=== PATIENT | male | born 1970 | race Caucasian/White ===

== ENCOUNTER → 2016-05-29 | Outpatient (CLI) | payer OTHER ==
[~2016-05-29] MED LIST: FENTANYL PF 100 MCG/2ML ONE; FLUMAZENIL 0.1 MG/1 ML, 5ML ONE; GADOBUTROL 10 MMOL/10 ML PFS ONE; MIDAZOLAM 1 MG/ML, 5ML ONE; NALOXONE 1 MG/ML, 2ML ONE
== END | disposition home or self-care (01) ==
LOC: RAD 11:50
PROVIDERS: ATTEND Family Medicine
DX: R22.0 Localized swelling, mass and lump, head (principal)
CPT/HCPCS: 70553; A9585; J2250; J3010; 99156; J2310

== ENCOUNTER → 2016-06-19 | Outpatient (CLI) | payer OTHER | END | disposition home or self-care (01) | LOC: PETCFH 10:52 | PROVIDERS: ATTEND Internal Medicine Hematology & Oncology | DX: R22.0 Localized swelling, mass and lump, head (principal) | CPT/HCPCS: 78306; A9503 ==

== ENCOUNTER → 2016-06-29 | Outpatient (CLI) | payer OTHER ==
[~2016-06-29] MED LIST changes: -FENTANYL PF 100 MCG/2ML ONE; -FLUMAZENIL 0.1 MG/1 ML, 5ML ONE; -GADOBUTROL 10 MMOL/10 ML PFS ONE; -MIDAZOLAM 1 MG/ML, 5ML ONE; -NALOXONE 1 MG/ML, 2ML ONE; +OMNIPAQUE 350 MG/ML, 100ML BOTTLE ONE
== END | disposition home or self-care (01) ==
LOC: CFH 13:04
PROVIDERS: ATTEND Internal Medicine Hematology & Oncology
DX: R22.0 Localized swelling, mass and lump, head (principal); K76.0 Fatty (change of) liver, not elsewhere classified; K76.9 Liver disease, unspecified
CPT/HCPCS: 71260; 74177; Q9967

== ENCOUNTER → 2016-10-05 | Outpatient (CLI) | payer OTHER ==
[~2016-10-05] MED LIST changes: +FENTANYL PF 100 MCG/2ML ONE; +GADOBUTROL 7.5 MMOL/7.5 ML PFS ONE; +MIDAZOLAM 1 MG/ML, 5ML ONE
== END | disposition home or self-care (01) ==
LOC: RAD 10:40
PROVIDERS: ATTEND Internal Medicine Hematology & Oncology
DX: K76.0 Fatty (change of) liver, not elsewhere classified (principal); K76.89 Other specified diseases of liver; E11.9 Type 2 diabetes mellitus without complications; R22.0 Localized swelling, mass and lump, head; T50.8X1A Poisoning by diagnostic agents, accidental (unintentional), initial encounter; R47.81 Slurred speech; C64.9 Malignant neoplasm of unspecified kidney, except renal pelvis; C77.9 Secondary and unspecified malignant neoplasm of lymph node, unspecified; Z90.5 Acquired absence of kidney
CPT/HCPCS: 36415; 70553; 71260; 74177; 82565; 99156; 99157; A9585; J2250; J3010; Q9967

== ENCOUNTER → 2017-01-08 | Outpatient (CLI) | payer OTHER | END | disposition home or self-care (01) | LOC: PETCFH 07:05 | PROVIDERS: ATTEND Internal Medicine Hematology & Oncology | DX: C64.9 Malignant neoplasm of unspecified kidney, except renal pelvis (principal); C79.51 Secondary malignant neoplasm of bone; R22.0 Localized swelling, mass and lump, head; Z98.890 Other specified postprocedural states; Z90.5 Acquired absence of kidney | CPT/HCPCS: 78306; A9503 ==

== ENCOUNTER → 2017-01-11 | Outpatient (CLI) | payer OTHER ==
[~2017-01-11] MED LIST changes: +FLUMAZENIL 0.1 MG/1 ML, 5ML ONE; +GADOBUTROL 10 MMOL/10 ML PFS ONE; -GADOBUTROL 7.5 MMOL/7.5 ML PFS ONE; +NALOXONE 1 MG/ML, 2ML ONE
== END ==
LOC: RAD 08:19
PROVIDERS: ATTEND Internal Medicine Hematology & Oncology
DX: R22.0 Localized swelling, mass and lump, head (principal); Z90.5 Acquired absence of kidney; K76.9 Liver disease, unspecified
CPT/HCPCS: 70553; 71260; 74177; 99156; 99157; A9585; J2250; J3010; Q9967; J2310

== ENCOUNTER → 2017-04-23 | Outpatient (CLI) | payer OTHER ==
[~2017-04-23] MED LIST changes: -FENTANYL PF 100 MCG/2ML ONE; -FLUMAZENIL 0.1 MG/1 ML, 5ML ONE; -GADOBUTROL 10 MMOL/10 ML PFS ONE; -MIDAZOLAM 1 MG/ML, 5ML ONE; -NALOXONE 1 MG/ML, 2ML ONE
== END ==
LOC: RAD 12:27
PROVIDERS: ATTEND Internal Medicine Hematology & Oncology
DX: C64.9 Malignant neoplasm of unspecified kidney, except renal pelvis (principal); R22.0 Localized swelling, mass and lump, head
CPT/HCPCS: 71260; 74177; Q9967

== ENCOUNTER → 2017-04-26 | Outpatient (CLI) | payer OTHER ==
[~2017-04-26] MED LIST changes: +FENTANYL PF 100 MCG/2ML ONE; +FLUMAZENIL 0.1 MG/1 ML, 5ML ONE; +GADOBUTROL 10 MMOL/10 ML PFS ONE; +MIDAZOLAM 1 MG/ML, 2ML ONE; +NALOXONE 1 MG/ML, 2ML ONE; -OMNIPAQUE 350 MG/ML, 100ML BOTTLE ONE
== END | disposition home or self-care (01) ==
LOC: RAD 11:56
PROVIDERS: ATTEND Internal Medicine Hematology & Oncology
DX: R22.0 Localized swelling, mass and lump, head (principal); C64.9 Malignant neoplasm of unspecified kidney, except renal pelvis
CPT/HCPCS: 70553; 99156; 99157; A9585; J2250; J3010; J2310

== ENCOUNTER → 2017-08-16 | Outpatient (CLI) | payer OTHER ==
[~2017-08-16] MED LIST changes: -FLUMAZENIL 0.1 MG/1 ML, 5ML ONE; -MIDAZOLAM 1 MG/ML, 2ML ONE; +MIDAZOLAM 1 MG/ML, 5ML ONE; -NALOXONE 1 MG/ML, 2ML ONE
== END | disposition home or self-care (01) ==
LOC: RAD 07:45
PROVIDERS: ATTEND Internal Medicine Hematology & Oncology
DX: R22.0 Localized swelling, mass and lump, head (principal)
CPT/HCPCS: 70553; 99156; 99157; A9585; J2250; J3010

== ENCOUNTER → 2017-10-04 | Outpatient (CLI) | payer OTHER ==
[~2017-10-04] MED LIST changes: +FLUMAZENIL 0.1 MG/1 ML, 5ML ONE; -GADOBUTROL 10 MMOL/10 ML PFS ONE; +GADOBUTROL 10 MMOL/10 ML VIAL ONE; +NALOXONE 1 MG/ML, 2ML ONE
== END | disposition home or self-care (01) ==
LOC: RAD 11:41
PROVIDERS: ATTEND Orthopaedic Surgery
DX: R22.31 Localized swelling, mass and lump, right upper limb (principal); G56.31 Lesion of radial nerve, right upper limb
CPT/HCPCS: 73223; 99156; 99157; A9585; J2250; J3010; J2310

== ENCOUNTER → 2017-10-05 | Outpatient (CLI) | payer OTHER ==
[~2017-10-05] MED LIST changes: -FLUMAZENIL 0.1 MG/1 ML, 5ML ONE; -GADOBUTROL 10 MMOL/10 ML VIAL ONE; -NALOXONE 1 MG/ML, 2ML ONE
== END | disposition home or self-care (01) ==
LOC: RAD 12:39
PROVIDERS: ATTEND Orthopaedic Surgery
DX: Z02.9 Encounter for administrative examinations, unspecified (principal)
CPT/HCPCS: J2250; J3010

== ENCOUNTER → 2017-11-19 | Outpatient (CLI) | payer OTHER | END | disposition home or self-care (01) | LOC: RAD 08:52 | PROVIDERS: ATTEND Internal Medicine Hematology & Oncology | DX: E04.1 Nontoxic single thyroid nodule (principal); M89.9 Disorder of bone, unspecified | CPT/HCPCS: 76536 ==

== ENCOUNTER → 2017-12-06 | Outpatient (CLI) | payer OTHER | END | disposition home or self-care (01) | LOC: RAD 13:37 | PROVIDERS: ATTEND Radiology Radiation Oncology | DX: Z02.9 Encounter for administrative examinations, unspecified (principal) ==

== ENCOUNTER → 2017-12-10 | Outpatient (CLI) | payer OTHER ==
[~2017-12-10] MED LIST changes: +FLUMAZENIL 0.1 MG/1 ML, 5ML ONE; +GADOBUTROL 7.5 MMOL/7.5 ML PFS ONE; +NALOXONE 1 MG/ML, 2ML ONE
== END | disposition home or self-care (01) ==
LOC: RAD 11:23
PROVIDERS: ATTEND Internal Medicine Hematology & Oncology
DX: M89.8X8 Other specified disorders of bone, other site (principal); M25.469 Effusion, unspecified knee
CPT/HCPCS: 70491; 70553; 73720; 73723; 99156; 99157; A9585; J2250; J3010; J2310

== ENCOUNTER → 2017-12-30 | Outpatient (CLI) | payer OTHER ==
[~2017-12-30] MED LIST changes: -FLUMAZENIL 0.1 MG/1 ML, 5ML ONE; +GADOBUTROL 10 MMOL/10 ML PFS ONE; -GADOBUTROL 7.5 MMOL/7.5 ML PFS ONE; -NALOXONE 1 MG/ML, 2ML ONE
== END | disposition home or self-care (01) ==
LOC: RAD 08:57
PROVIDERS: ATTEND Radiology Radiation Oncology
DX: C79.51 Secondary malignant neoplasm of bone (principal)
CPT/HCPCS: 73720; 99156; 99157; A9585; J2250; J3010

== ENCOUNTER → 2018-03-23 | Outpatient (CLI) | payer OTHER | END | disposition home or self-care (01) | LOC: PETCFH 07:32 | PROVIDERS: ATTEND Internal Medicine Hematology & Oncology | DX: C64.1 Malignant neoplasm of right kidney, except renal pelvis (principal); R22.0 Localized swelling, mass and lump, head | CPT/HCPCS: 78815; A9552 ==

== ENCOUNTER 2018-05-25 07:57 | Outpatient (CLI) | payer OTHER ==
[2018-05-25] MEDS ORDERED: MIDAZOLAM 1 MG/ML, 5ML ONE (08:36)
[2018-05-25] MEDS ORDERED: FENTANYL PF 100 MCG/2ML ONE (08:36)
[2018-05-25] MEDS ORDERED: GADOBUTROL 7.5 MMOL/7.5 ML PFS ONE (12:40)
== END 2018-05-25 23:59 | disposition home or self-care (01) ==
LOC: RAD 07:57
PROVIDERS: ATTEND Internal Medicine Hematology & Oncology
DX: C64.1 Malignant neoplasm of right kidney, except renal pelvis (principal); R22.0 Localized swelling, mass and lump, head
CPT/HCPCS: 70553; 99156; 99157; A9585; J2250; J3010

== ENCOUNTER → 2018-05-26 | Outpatient (CLI) | payer OTHER ==
[~2018-05-26] MED LIST changes: -FENTANYL PF 100 MCG/2ML ONE; -GADOBUTROL 10 MMOL/10 ML PFS ONE; -MIDAZOLAM 1 MG/ML, 5ML ONE; +OMNIPAQUE 350 MG/ML, 100ML BOTTLE ONE
== END | disposition home or self-care (01) ==
LOC: CFH 08:07
PROVIDERS: ATTEND Internal Medicine Hematology & Oncology
DX: N28.1 Cyst of kidney, acquired (principal); R22.0 Localized swelling, mass and lump, head; Z90.5 Acquired absence of kidney
CPT/HCPCS: 71260; 74177; Q9967

== ENCOUNTER 2018-09-14 10:23 | Outpatient (CLI) | payer OTHER | END 2018-09-14 23:59 | disposition home or self-care (01) | LOC: PETCFH 10:23 | PROVIDERS: ATTEND Internal Medicine Hematology & Oncology | DX: C64.1 Malignant neoplasm of right kidney, except renal pelvis (principal); R22.0 Localized swelling, mass and lump, head | CPT/HCPCS: 78306; A9503 ==

== ENCOUNTER → 2019-03-13 | Outpatient (CLI) | payer OTHER | END | disposition home or self-care (01) | LOC: RAD 10:53 | PROVIDERS: ATTEND Internal Medicine Hematology & Oncology | DX: C64.1 Malignant neoplasm of right kidney, except renal pelvis (principal); R22.0 Localized swelling, mass and lump, head; Z96.642 Presence of left artificial hip joint; Z90.5 Acquired absence of kidney; Z85.528 Personal history of other malignant neoplasm of kidney | CPT/HCPCS: 78306; A9503 ==

== ENCOUNTER 2019-05-01 10:52 | Outpatient (CLI) | payer OTHER ==
[2019-05-01] MEDS ORDERED: OMNIPAQUE 350 MG/ML, 100ML BOTTLE ONE (12:13)
== END 2019-05-01 23:59 | disposition home or self-care (01) ==
LOC: CFH 10:52
PROVIDERS: ATTEND Internal Medicine Hematology & Oncology
DX: C64.1 Malignant neoplasm of right kidney, except renal pelvis (principal); R22.0 Localized swelling, mass and lump, head; Z90.5 Acquired absence of kidney
CPT/HCPCS: 71260; 74177; Q9967

== ENCOUNTER 2019-05-02 06:59 | Outpatient (CLI) | payer OTHER ==
[2019-05-02] MEDS ORDERED: FLUMAZENIL 0.1 MG/1 ML, 5ML ONE (07:33)
[2019-05-02] MEDS ORDERED: NALOXONE 1 MG/ML, 2ML ONE (07:33)
[2019-05-02] MEDS ORDERED: MIDAZOLAM 1 MG/ML, 5ML ONE (07:33)
[2019-05-02] MEDS ORDERED: FENTANYL PF 100 MCG/2ML ONE (07:33)
[2019-05-02] MEDS ORDERED: GADOTERATE 7.5 MMOL/15 ML VIAL ONE (09:06)
== END 2019-05-02 23:59 | disposition home or self-care (01) ==
LOC: RAD 06:59
PROVIDERS: ATTEND Internal Medicine Hematology & Oncology
DX: R22.0 Localized swelling, mass and lump, head (principal); C64.1 Malignant neoplasm of right kidney, except renal pelvis; Z85.830 Personal history of malignant neoplasm of bone
CPT/HCPCS: 70553; 99156; 99157; A9575; J2250; J3010; J2310

== ENCOUNTER 2019-07-29 23:02 | Emergency (ER) | payer OTHER ==
[2019-07-29] MEDS ORDERED: MORPHINE SULFATE 4 MG/ML, 1ML ONE (23:19)
[2019-07-29] MEDS ORDERED: ONDANSETRON 2MG/ML, 2ML ONE (23:19)
[2019-07-29] MEDS: MORPHINE SULFATE 4 MG/ML, 1ML IVPush PRN (23:29)
[2019-07-29] MEDS ORDERED: ONDANSETRON 2MG/ML, 2ML IVPush ONE (23:30)
--- NOTE | 2019-07-29 23:35 | NUR ---
PT RSTING ON GURNEY, MONITORS APPLIED, SIDERAILS UP X2, FAMILY AT BEDSIDE, CALL LIGHT WITHIN REACH. IV SITE STARTED, LABS DRAWN, PT MEDICATED PER MAR. PROVIDED PT WITH URINE CUP FR SAMPLE, PT STATED " I CAN NOT PEE RIGHT NOW". AWAITING LAB AND CT RESULTS
[2019-07-29 23:37] LABS: BASOPHILS # (AUTO) 0.05 x10^3/uL (0-0.1); BASOPHILS % (AUTO) 1 % (0-1); EOSINOPHILS # (AUTO) 0.06 x10^3/uL (0-0.4); EOSINOPHILS % (AUTO) 1 % (1-7); LYMPHOCYTES # (AUTO) 0.83 x10^3/uL (1-3.4); LYMPHOCYTES % (AUTO) 10 % (22-44); MD NO; MEAN CORPUSCULAR HEMOGLOBIN 33.3 pg (27.5-34.5); MEAN CORPUSCULAR HGB CONC 33.6 g/dL (33.2-36.2); MEAN CORPUSCULAR VOLUME 98.9 fL (81-97); MEAN PLATELET VOLUME 7.4 fL (7.4-10.4); MONOCYTES # (AUTO) 0.63 x10^3/uL (0.2-0.8); MONOCYTES % (AUTO) 8 % (2-9); NEUTROPHILS # (AUTO) 6.43 x10^3/uL (1.8-6.8); NEUTROPHILS % (AUTO) 80 % (42-75); PLATELET COUNT 222 x10^3/uL (130-400); RED BLOOD COUNT 4.37 x10^6/uL (4.38-5.82); RED CELL DISTRIBUTION WIDTH 15.8 % (9.4-14.8)
[2019-07-29 23:42] LABS: ALANINE AMINOTRANSFERASE 28 U/L (12-78); ALBUMIN 3.7 g/dL (3.4-5.0); ANION GAP 9 mmol/L (5-15); CALCIUM 9.4 mg/dL (8.5-10.1); CHLORIDE 107 mmol/L (98-107); CREATININE 1.76 mg/dL (0.7-1.3)
[2019-07-29 23:45] LABS: ALKALINE PHOSPHATASE 72 U/L (45-117); BILIRUBIN,TOTAL 0.5 mg/dL (0.2-1.0); TOTAL PROTEIN 7.5 g/dL (6.4-8.2)
[2019-07-29 23:47] VITALS: BP 147/103
[2019-07-29] MEDS ORDERED: CABO60TA PO (23:47)
[2019-07-29] MEDS ORDERED: OXYC5CAP2 PO (23:47)
[2019-07-29] MEDS ORDERED: FLUO10CA13 PO (23:47)
[2019-07-29] MEDS ORDERED: MORP-52 PO (23:47)
[2019-07-29] MEDS ORDERED: DIPH1TAB PO (23:47)
[2019-07-29] MEDS ORDERED: MORP30TA81 PO (23:47)
--- NOTE | 2019-07-29 23:47 | NUR ---
URINE SAMPLE TAKEN TO LAB
[2019-07-30] MEDS ORDERED: MORPHINE SULFATE 4 MG/ML, 1ML ONE (00:12)
[2019-07-30] MEDS: MORPHINE SULFATE 4 MG/ML, 1ML IVPush PRN (00:15)
--- NOTE | 2019-07-30 00:15 | NUR ---
PT MEDICATED PER MAR FOR CONTINUED ABD PAIN. AWAITING CT RESULT
[2019-07-30 00:29] LABS: MICROSCOPIC AUTO
== END 2019-07-30 01:21 | disposition home or self-care (01) ==
LOC: ED 07-30 01:00
DX: N20.2 Calculus of kidney with calculus of ureter (principal); R10.32 Left lower quadrant pain; R11.10 Vomiting, unspecified; Z85.528 Personal history of other malignant neoplasm of kidney
CPT/HCPCS: 36415; 74176; 80053; 81001; 83690; 85025; 96374; 96375; 96376; 99284; J2270; J2405

== ENCOUNTER → 2019-08-18 | Outpatient (CLI) | payer OTHER ==
[~2019-08-18] MED LIST changes: +CABO60TA PO; +DIPH1TAB PO; +FLUO10CA13 PO; +MORP-52 PO; +MORP30TA81 PO; -OMNIPAQUE 350 MG/ML, 100ML BOTTLE ONE; +OXYC5CAP2 PO
== END | disposition home or self-care (01) ==
LOC: CFH 11:59
PROVIDERS: ATTEND Urology
DX: N20.1 Calculus of ureter (principal); Z85.528 Personal history of other malignant neoplasm of kidney; Z90.5 Acquired absence of kidney
CPT/HCPCS: 76770

== ENCOUNTER → 2019-09-12 | Outpatient (CLI) | payer OTHER ==
[~2019-09-12] MED LIST changes: +OMNIPAQUE 350 MG/ML, 100ML BOTTLE ONE
== END | disposition home or self-care (01) ==
LOC: RAD 10:07
PROVIDERS: ATTEND Internal Medicine Hematology & Oncology
DX: C64.1 Malignant neoplasm of right kidney, except renal pelvis (principal); R22.0 Localized swelling, mass and lump, head; Z90.5 Acquired absence of kidney
CPT/HCPCS: 71260; 74177; 78306; A9503; Q9967

== ENCOUNTER 2019-12-01 12:12 | Outpatient (CLI) | payer OTHER ==
[~2019-12-01 12:12] MED LIST changes: -OMNIPAQUE 350 MG/ML, 100ML BOTTLE ONE
[2019-12-01] MEDS ORDERED: FLUMAZENIL 0.1 MG/1 ML, 5ML ONE (12:33)
[2019-12-01] MEDS ORDERED: FENTANYL PF 100 MCG/2ML ONE (12:33)
[2019-12-01] MEDS ORDERED: MIDAZOLAM 1 MG/ML, 5ML ONE ×2 (12:33)
[2019-12-01] MEDS ORDERED: NALOXONE 1 MG/ML, 2ML ONE (12:33)
[2019-12-01] MEDS ORDERED: GADOTERATE 7.5 MMOL/15 ML SYR ONE (13:33)
== END 2019-12-01 23:59 | disposition home or self-care (01) ==
LOC: RAD 12:12 → EDSTATUS 12:45 → RAD 23:59
PROVIDERS: ATTEND Internal Medicine Hematology & Oncology
DX: R22.0 Localized swelling, mass and lump, head (principal); C64.1 Malignant neoplasm of right kidney, except renal pelvis; F33.1 Major depressive disorder, recurrent, moderate; Z79.899 Other long term (current) drug therapy
CPT/HCPCS: 70553; 99156; 99157; A9575; J2250; J3010; J2310

== ENCOUNTER 2020-02-28 17:41 | Emergency (ER) | payer OTHER ==
[~2020-02-28] VITALS: Ht 172.7 cm; Wt 64.0 kg
[2020-02-28] MEDS ORDERED: LORazepam 2 MG/ML, 1ML ONE (18:04)
[2020-02-28] MEDS ORDERED: SODIUM CHLORIDE 0.9% 1,000ML IVBOLUS ONE (18:30)
[2020-02-28] MEDS ORDERED: PROPOFOL 10 MG/ML, 20ML IVPush ONE (18:30)
[2020-02-28] MEDS ORDERED: SODIUM CHLORIDE FLUSH 10ML SYR IVF ONE (18:30)
[2020-02-28] MEDS ORDERED: LIDOCAINE-MPF 1%, 5ML INFIL ONE (18:30)
[2020-02-28] MEDS ORDERED: LORazepam 2 MG/ML, 1ML IM ONE (18:30)
--- NOTE | 2020-02-28 18:46 | NUR ---
TASK RN: PT PLACED ON STONE OPERATOR. IV ACCESS OBTAINED. SEDATION PACKET AND CONSENT AT BEDSIDE. ETCO2 MONITORING BOX IN MONITOR. BVM IN ROOM.
[2020-02-28] MEDS ORDERED: LIDOCAINE-MPF 1%, 5ML ONE (19:20)
[2020-02-28] MEDS ORDERED: BUPIVACAINE 0.25% ONE (19:20)
[2020-02-28] MEDS ORDERED: PROPOFOL 10 MG/ML, 20ML ONE (19:21)
--- NOTE | 2020-02-28 19:26 | NUR ---
REPORT FROM ALANA ROMERO
--- NOTE | 2020-02-28 19:37 | NUR ---
SEDATION STARTED AT THIS TIME. MD TRAVIS AND RACHEL AT BEDSIDE FOR SUTURING
--- NOTE | 2020-02-28 19:38 | NUR ---
SUCTION, O2 AND ENDTIDAL AT BEDSIDE
--- NOTE | 2020-02-28 19:49 | NUR ---
SEDATION COMPLETED AND FINGER SUCCESSFULLY SUTURED. PT TOLERATED WELL. PT TO BE RECOVERED.
[2020-02-28 20:01] VITALS: BP 106/69
--- NOTE | 2020-02-28 20:09 | NUR ---
PT A+O X 4. AT BEDSIDE. PT ABLE TO TOELRATE PO FLUIDS AT THIS TIME
--- NOTE | 2020-02-28 20:09 | NUR ---
180MG PROPOFOL USED, ADMINISTERED BY DR TRAVIS. 20MG WASTED WITH ALANA KIM WITNESS
--- NOTE | 2020-02-28 20:10 | NUR ---
SEE PAPER CHART FOR FURTHER DETAILS OF SEDATION.
--- NOTE | 2020-02-28 21:23 | NUR ---
PT ABLE TO AMBULATE. D/C WITH IN PRIVATE VEHICLE. EDUCATION PROVIDED REGARDING WOUND CARE AND HOME MEDICATIONS.
== END 2020-02-28 21:25 | disposition home or self-care (01) ==
LOC: ED 21:00
DX: S61.121A Laceration with foreign body of right thumb with damage to nail, initial encounter (principal); R00.0 Tachycardia, unspecified; Z85.528 Personal history of other malignant neoplasm of kidney; W26.0XXA Contact with knife, initial encounter; Y93.89 Activity, other specified; Y92.009 Unspecified place in unspecified non-institutional (private) residence as the place of occurrence of the external cause; Y99.8 Other external cause status
CPT/HCPCS: 12041; 96360; 96372; 99285; J2060; J7030

== ENCOUNTER 2020-03-26 09:04 | Outpatient (CLI) | payer OTHER ==
[2020-03-26] MEDS ORDERED: OMNIPAQUE 350 MG/ML, 100ML BOTTLE ONE (10:30)
== END 2020-03-26 23:59 | disposition home or self-care (01) ==
LOC: PETCFH 09:04
PROVIDERS: ATTEND Internal Medicine Hematology & Oncology
DX: C79.51 Secondary malignant neoplasm of bone (principal); C64.1 Malignant neoplasm of right kidney, except renal pelvis; R22.0 Localized swelling, mass and lump, head; F33.1 Major depressive disorder, recurrent, moderate; G89.3 Neoplasm related pain (acute) (chronic); F41.9 Anxiety disorder, unspecified; R45.6 Violent behavior; K76.0 Fatty (change of) liver, not elsewhere classified; Z79.899 Other long term (current) drug therapy
CPT/HCPCS: 71260; 74177; 78306; A9503; Q9967

== ENCOUNTER → 2020-09-26 | Outpatient (CLI) | payer OTHER ==
[~2020-09-26] MED LIST changes: +OMNIPAQUE 350 MG/ML, 100ML BOTTLE ONE
== END | disposition home or self-care (01) ==
LOC: CFH 08:37
PROVIDERS: ATTEND Internal Medicine Hematology & Oncology
DX: C64.1 Malignant neoplasm of right kidney, except renal pelvis (principal); R22.0 Localized swelling, mass and lump, head
CPT/HCPCS: 71260; 74177; 82565; Q9967

== ENCOUNTER 2020-09-30 05:51 | Day surgery (SDC) | payer OTHER ==
[~2020-09-30] VITALS: Ht 172.7 cm; Wt 60.4 kg
[~2020-09-30 05:51] MED LIST changes: -OMNIPAQUE 350 MG/ML, 100ML BOTTLE ONE
[2020-09-30 06:38] VITALS: BP 117/78
[2020-09-30] MEDS ORDERED: levothyroxine PO (06:42)
[2020-09-30] MEDS ORDERED: FLUMAZENIL 0.1 MG/1 ML, 5ML ONE (08:48)
[2020-09-30] MEDS ORDERED: NALOXONE 1 MG/ML, 2ML ONE (08:48)
[2020-09-30] MEDS ORDERED: FENTANYL PF 100 MCG/2ML ONE (08:48)
[2020-09-30] MEDS ORDERED: MIDAZOLAM 1 MG/ML, 5ML ONE (08:48)
[2020-09-30] MEDS ORDERED: GADOTERATE 7.5 MMOL/15ML SYR ONE (09:54)
== END 2020-09-30 11:05 | disposition home or self-care (01) ==
LOC: OUT 05:51 → EDSTATUS 08:00 → OUT 11:05
PROVIDERS: ATTEND Internal Medicine Hematology & Oncology
DX: R22.0 Localized swelling, mass and lump, head (principal); C64.1 Malignant neoplasm of right kidney, except renal pelvis; C79.51 Secondary malignant neoplasm of bone; F33.1 Major depressive disorder, recurrent, moderate; I10 Essential (primary) hypertension; E03.9 Hypothyroidism, unspecified; Z79.890 Hormone replacement therapy; Z79.899 Other long term (current) drug therapy
CPT/HCPCS: 70553; 99156; 99157; A9575; J2250; J3010; J2310

== ENCOUNTER 2020-10-24 18:19 | Emergency (ER) | payer OTHER ==
[~2020-10-24] VITALS: Ht 172.7 cm; Wt 55.0 kg
[~2020-10-24 18:19] MED LIST changes: +levothyroxine PO
--- NOTE | 2020-10-24 19:25 | NUR ---
KNOT PICKER CLOTH: PT. TO ROOM FROM WALL WITH ANGEL AT THIS TIME.
--- NOTE | 2020-10-24 19:59 | NUR ---
TASK RN: PT TO ROOM 23 W/ C/O "BASICALLY I HAD A PANIC ATTACK AND MY HEART LEVEL JEANINE UP". PT STATES HE WAS AT THE [facility] AND HE HAD A PANIC ATTACK AND WAS TAKEN TO THE [facility] AND WHEN HIS HR WAS ELEVATED PT WAS BROUGHT TO ED. PT RESTING ON GURNEY. NADN. MONITORS REMAIN IN PLACE. HEART RATE ELEVATED WHEN PT TALKS ABAOUT WHY HE WAS ARRESTED. WARM BLANKET PROVIDED. CALL LIGHT IN REACH.
--- NOTE | 2020-10-24 20:03 | NUR ---
TASK RN: REPORT GIVEN TO ALANA TSANG.
--- NOTE | 2020-10-24 20:04 | NUR ---
REPORT FROM JANICE WARNER
--- NOTE | 2020-10-24 20:28 | NUR ---
LAB AT BEDSIDE
--- NOTE | 2020-10-24 20:40 | NUR ---
LABS [id number] WITH APPLE JUICE/STRING CHEESE
[2020-10-24 20:51] LABS: ANION GAP 6 mmol/L (5-15); CALCIUM 8.1 mg/dL (8.5-10.1); CHLORIDE 106 mmol/L (98-107); CREATININE 0.97 mg/dL (0.7-1.3)
[2020-10-24 21:13] VITALS: BP 129/85
--- NOTE | 2020-10-24 21:31 | NUR ---
REPEAT FS 116 POST EATING. REVIEWED POC-DISCHARGED IN CARE OF FAMILY
== END 2020-10-24 21:33 | disposition home or self-care (01) ==
LOC: ED 21:06
DX: Z00.00 Encounter for general adult medical examination without abnormal findings (principal); R00.2 Palpitations; F41.9 Anxiety disorder, unspecified; Z85.528 Personal history of other malignant neoplasm of kidney
CPT/HCPCS: 36415; 80048; 84443; 99283